=== PATIENT | male | born 1975 | race Two or more races ===

== ENCOUNTER 2020-03-29 23:55 | Emergency (ER) | payer OTHER ==
[~2020-03-29] VITALS: Ht 170.2 cm; Wt 82.6 kg
[2020-03-30] MEDS ORDERED: ZESTRIL10 M1
[2020-03-30] MEDS ORDERED: NAPROXEN375 MG PO (03:24)
[2020-03-30] MEDS ORDERED: SKELAXIN800 MG PO (03:24)
== END 2020-03-30 04:12 | disposition home or self-care (01) ==
LOC: ER 23:55
DX: S40.012A Contusion of left shoulder, initial encounter (principal); S30.0XXA Contusion of lower back and pelvis, initial encounter; S20.213A Contusion of bilateral front wall of thorax, initial encounter; S00.83XA Contusion of other part of head, initial encounter; V49.9XXA Car occupant (driver) (passenger) injured in unspecified traffic accident, initial encounter; Y93.89 Activity, other specified; Y92.488 Other paved roadways as the place of occurrence of the external cause; Y99.8 Other external cause status

== ENCOUNTER 2020-08-31 06:14 | Emergency (ER) | payer OTHER ==
[~2020-08-31] VITALS: Ht 170.2 cm; Wt 83.9 kg
[~2020-08-31 06:14] MED LIST: NAPROXEN375 MG PO; SKELAXIN800 MG PO; ZESTRIL10 M1
[2020-08-31] MEDS ORDERED: AMLODIPINE-OLM1 EAC1 PO (06:37)
== END 2020-08-31 11:40 ==
LOC: ER 06:14
DX: S40.812A Abrasion of left upper arm, initial encounter (principal); S40.212A Abrasion of left shoulder, initial encounter; V49.88XA Car occupant (driver) (passenger) injured in other specified transport accidents, initial encounter; Y93.89 Activity, other specified; Y92.411 Interstate highway as the place of occurrence of the external cause; Y99.8 Other external cause status